=== PATIENT | female | born 1985 | race Caucasian/White ===

== ENCOUNTER → 2020-08-22 | Outpatient (CLI) | payer BC ==
--- NOTE | 2020-08-22 16:57 | Diagnostic Imaging Report ---
INDICATION: patient, survey. TECHNIQUE: Multiple real-time grayscale images were obtained over the gravid uterus. COMPARISON: None during this . FINDINGS: A single live intrauterine fetus is seen measuring 20 weeks 4 days in size by composite measurements. Sonographic EDC is 01/05/2021. The fetus is in cephalic presentation. Placenta is posterior with no evidence of previa. heart rate is 140 bpm. Cervical length was 4.9 cm. Amniotic fluid is qualitatively normal, there was no adnexal free fluid, maternal ovaries are not visualized. survey showed normal-appearing kidneys and bladder. Normal-appearing stomach is seen. Normal-appearing intracranial structures were seen. Four-chamber heart view appear normal. Three-vessel cord and cord insertion appear normal. Views of the spine were unremarkable. Biometrical measurements are as follows: Biparietal 4.78 cm, age 20 weeks 4 days. Head circumference 17.62 cm, age 20 weeks 1 days. Abdominal circumference 15.17 cm, age 20 weeks 3 days. Femur length 3.39 cm, age 20 weeks 5 days. Sonographic estimate age: 20 weeks 4 days. Sonographic estimated date of delivery: 01/05/21. Estimated Weight: 356 gm (+/- 52 gm). LMP percentile: 91%. heart rate: 140 beats per minute. number: 1 of 1. IMPRESSION: Single live intrauterine fetus measuring 20 weeks 4 days in size with no detectable abnormalities. Dictated by: Dictated on workstation # [id number]
== END ==
LOC: RAD 15:00
PROVIDERS: ATTEND Nurse Practitioner Women's Health
DX: Z34.02 Encounter for supervision of normal first pregnancy, second trimester (principal); Z3A.20 20 weeks gestation of pregnancy
CPT/HCPCS: 76805

== ENCOUNTER 2021-01-04 19:00 | Inpatient (IN) | payer BC ==
[~2021-01-04] VITALS: Ht 165.1 cm; Wt 91.3 kg
[2021-01-05] VITALS (50 sets, daily range): BP systolic 58–143; BP diastolic 33–75
[2021-01-05] MEDS: D5 LR IV SOLUTION 1,000 ML IV SCH ×2 (07:28→11:47)
[2021-01-05] MEDS ORDERED: CATHETER FLUSH 10 ML SYR IV PRN (07:30)
[2021-01-05 07:46] LABS: BASOPHILS % (AUTO) 0 % (0-10); EOSINOPHILS # (AUTO) 0.3 10^3/uL (0.0-0.3); EOSINOPHILS % (AUTO) 3 % (0-10); HEMATOCRIT 32 % (35-52); HEMOGLOBIN 10.3 g/dL (11.5-16.0); LYMPHOCYTES # (AUTO) 1.4 10^3/uL (1.0-4.0); LYMPHOCYTES % (AUTO) 16 % (12-44); MEAN CORPUSCULAR HEMOGLOBIN 26 pg (25-34); MEAN CORPUSCULAR HGB CONC 32 g/dL (32-36); MEAN CORPUSCULAR VOLUME 82 fL (80-99); MEAN PLATELET VOLUME 10.9 fL (9.0-12.2); MONOCYTES # (AUTO) 0.5 10^3/uL (0.0-1.0); MONOCYTES % (AUTO) 6 % (0-12); NEUTROPHILS # (AUTO) 6.2 10^3/uL (1.8-7.8); NEUTROPHILS % (AUTO) 71 % (42-75); PLATELET COUNT 163 10^3/uL (130-400); WHITE BLOOD COUNT 8.7 10^3/uL (4.3-11.0)
[2021-01-05] MEDS ORDERED: PNV11TAB5 PO (07:48)
[2021-01-05 07:58] LABS: BILIRUBIN,URINE NEGATIVE (NEGATIVE); CLARITY,URINE CLEAR; COLOR,URINE YELLOW; GLUCOSE, URINE (UA) NEGATIVE (NEGATIVE); KETONES,URINE NEGATIVE (NEGATIVE); LEUKOCYTE ESTERASE ,URINE 1+ (NEGATIVE); NITRITE,URINE NEGATIVE (NEGATIVE); PH,URINE 6.5 (5-9); PROTEIN,URINE NEGATIVE (NEGATIVE)
[2021-01-05 08:06] LABS: BACTERIA,URINE FEW /HPF; RBC,URINE RARE /HPF
[2021-01-05 08:07] LABS: AMORPHOUS SEDIMENT,UR FEW AMOR URATES /LPF
[2021-01-05] MEDS ORDERED: fentaNYL 2 mcg/ml BUPIVA 0.125 100 ML ONE (08:19)
--- NOTE | 2021-01-05 08:36 | History & Physical-OB ---
OB - Chief Complaint & HPI Date/Time Date of Admission: Date of Admission: Jan 05, 2021 at 6:41 am Date seen by a Provider: Jan 05, 2021 Time Seen by a Provider: 07:55 Chief Complaint/History OB-Reason for Admission/Chief: Induction of Labor Hx : 3 Hx Para: 2 Gestational Age in Weeks: 39 Gestational Age in Days: 0 Admission Nurse Assessment Rev: Yes History of Labs A pos Antibody neg RI RPR NR HBsAg NR HIV NR GC neg GBS neg Allergies and Home Medications Allergies Coded Allergies: Penicillins (Verified Allergy, Mild, Rash, 01/05/21) Home Medications [id number]/FA/Omega3/Dha/Fish Oil 1 Each Tab.chew, 1 EACH PO DAILY, (Reported) Last Action: New Order Patient Home Medication List Home Medication List Reviewed: Yes OB - History Hx of Present Care: Yes Ultrasounds: Normal mid trimester US Obstetrical Complications: None Medical Complications: None Patient Past Medical History n/a OB - Admission Exam Physical Exam HEENT: NCAT Heart: Rhythm Normal Lungs: Clear Abdomen: Gravid Extremities: Normal Reflexes: Normal Cervical Dilatation: 6cm Effacement: 75% Station: -1 Membranes: Intact Heart Rate: 130's Accelerations: Accelerations Present Decelerations: No Decelerations Short Term Variability: Present Test Analyst Variability: Average (6-25) Contractions on Admission: 6-10 Minutes Apart Intensity: Mild Jennings Scoring Tool (Modified) Dilation (cm): >5cm (3) Effacement (%): 80-100% (3) Descent/Station: -1,0 (2) Cervix Consistency: Soft (2) Cervix Position: Anterior (2) Jennings Score: 14 Labs Laboratory Tests Test 01/05/21 07:00 01/05/21 07:20 Range/Units Urine Color YELLOW Urine Clarity CLEAR Urine pH 6.5 5-9 Urine Specific [place] 1.020 1.016-1.022 Urine Protein NEGATIVE NEGATIVE Urine Glucose (UA) NEGATIVE NEGATIVE Urine Ketones NEGATIVE NEGATIVE Urine Nitrite NEGATIVE NEGATIVE Urine Bilirubin NEGATIVE NEGATIVE Urine Urobilinogen 0.2 < = 1.0 MG/DL Urine Leukocyte Esterase 1+ H NEGATIVE Urine RBC (Auto) TRACE-I NEGATIVE Urine RBC RARE /HPF Urine WBC 5-10 H /HPF Urine Squamous Epithelial Cells 5-10 /HPF Urine Crystals PRESENT H /LPF Urine Amorphous Sediment FEW DARIUS URATES H /LPF Urine Bacteria FEW H /HPF Urine Casts NONE /LPF Urine Mucus NEGATIVE /LPF Urine Culture Indicated YES White Blood Count 8.7 4.3-11.0 10^3/uL Red Blood Count 3.93 3.80-5.11 10^6/uL Hemoglobin 10.3 L 11.5-16.0 g/dL Hematocrit 32 L 35-52 % Mean Corpuscular Volume 82 80-99 fL Mean Corpuscular Hemoglobin 26 25-34 pg Mean Corpuscular Hemoglobin Concent 32 32-36 g/dL Red Cell Distribution Width 14.3 10.0-14.5 % Platelet Count 163 130-400 10^3/uL Mean Platelet Volume 10.9 9.0-12.2 fL Immature Granulocyte % (Auto) 3 % Neutrophils (%) (Auto) 71 42-75 % Lymphocytes (%) (Auto) 16 12-44 % Monocytes (%) (Auto) 6 0-12 % Eosinophils (%) (Auto) 3 0-10 % Basophils (%) (Auto) 0 0-10 % Neutrophils # (Auto) 6.2 1.8-7.8 10^3/uL Lymphocytes # (Auto) 1.4 1.0-4.0 10^3/uL Monocytes # (Auto) 0.5 0.0-1.0 10^3/uL Eosinophils # (Auto) 0.3 0.0-0.3 10^3/uL Basophils # (Auto) 0.0 0.0-0.1 10^3/uL Immature Granulocyte # (Auto) 0.3 H 0.0-0.1 10^3/uL OB - Assessment/Plan/Diagnosis Assessment Assessment: induction of labor Admission Dx 35 yo @ 39 weeks Elective IOL GBS neg Admission Status: Inpatient Order (span 2 midnights) Reason for Inpatient Admission: Induction of labor at 39 weeks Plan Plan: Induction MONICA CATHERINE DO Jan 05, 2021 8:36 am
[2021-01-05] MEDS ORDERED: METOCLOPRAMIDE INJ 10 MG/2 ML (REGLAN) IV PRN (09:15)
[2021-01-05] MEDS ORDERED: EPIDURAL (fentaNYL 2 MCG/ML BUPIVA 0.125%)100 ML BAG EPI SCH (09:15)
[2021-01-05] MEDS ORDERED: ONDANSETRON 4 MG/2 ML (SDV) Z0FRAN IV PRN (09:15)
[2021-01-05] MEDS ORDERED: NALOXONE 0.4 MG/ML 1 ML (NARCAN) VIAL IV PRN ×2 (09:15)
[2021-01-05] MEDS ORDERED: LACTATED RINGERS 1,000 ML IV SCH (09:15)
[2021-01-05] MEDS ORDERED: diphenhydrAMINE 50 MG/ML INJ (BENADRYL) IV PRN (09:15)
[2021-01-05] MEDS ORDERED: fentaNYL 2 mcg/ml BUPIVA 0.125 100 ML EPI PRN (09:30)
[2021-01-05] MEDS ORDERED: OXYTOCIN PRE-MIX DRIP 500 ML IV SCH ×2 (10:30→15:00)
[2021-01-05] MEDS ORDERED: LIDOCAINE 1% INJ 20 ML 20 ML VIAL ONE (14:29)
[2021-01-05] MEDS ORDERED: BENZOCAINE/MENTHOL (DERMOPLAST) 56 ML CAN TP PRN (15:00)
[2021-01-05] MEDS ORDERED: MEASLES,MUMPS,RUBELLA 1 EA INJ SQ ONE (15:00)
[2021-01-05] MEDS ORDERED: HYDROcodone/APAP 5 MG/325 MG (LORTAB) TAB PO PRN (15:00)
[2021-01-05] MEDS ORDERED: DIBUCAINE 1% OINTMENT 30 GM TUBE TOP PRN (15:00)
[2021-01-05] MEDS ORDERED: WITCH HAZEL(TUCKS) 40 EA JAR TOP PRN (15:00)
[2021-01-05] MEDS ORDERED: TETANUS,DIPTH,PERTUSS P/F (BOOSTRIX) 0.5 ML VIAL IM ONE (15:00)
--- NOTE | 2021-01-05 16:56 | OB Labor & Delivery Record ---
L&D History Date of Service Date of Service: Jan 05, 2021 History Gestational Age in Weeks: 39 Hx : 3 Hx Para: 2 Complications Events: Routine care Operative Indications (Cesarea: N/A-Vaginal Delivery Intrapartal Events: None L&D Stage1 Stage One Onset of Labor - Date: Jan 05, 2021 Monitors and Tracing Monitor Mode: External Heart Rate: 140 Monitor Accelerations: Uniform Station: +1 Snuff Maker Variability: Average (6-10) Short Term Variability: Present Vital Signs VS - Last 72 Hours, by Label 01/05/21 01/05/21 01/05/21 01/05/21 07:17 08:52 08:57 09:00 Pulse 109 96 94 87 Resp 18 18 18 18 B/P (MAP) 109/65 (80) 112/68 (83) 113/71 (85) 111/67 (82) Pulse Ox 100 100 O2 Delivery Room Air Room Air Room Air Room Air 01/05/21 01/05/21 01/05/21 01/05/21 09:03 09:06 09:09 09:13 Pulse 105 116 116 80 Resp 18 18 18 18 B/P (MAP) 118/75 (89) 111/58 (75) 94/56 (69) 80/41 (54) Pulse Ox 95 100 100 O2 Delivery Room Air Room Air Room Air Room Air 01/05/21 01/05/21 01/05/21 01/05/21 09:15 09:16 09:18 09:22 Pulse 75 67 85 94 Resp 18 18 18 18 B/P (MAP) 63/36 (45) 58/33 (41) 96/52 (67) 120/56 (77) Pulse Ox 96 99 O2 Delivery Room Air Room Air Room Air Room Air 01/05/21 01/05/21 01/05/21 01/05/21 09:25 09:28 09:29 09:30 Temp 35.6 Pulse 87 84 85 75 Resp 18 18 18 18 B/P (MAP) 87/52 (64) 75/45 (55) 79/46 (57) 87/51 (63) Pulse Ox 99 O2 Delivery Room Air Room Air Room Air Room Air 01/05/21 01/05/21 01/05/21 01/05/21 09:33 09:36 09:39 09:45 Pulse 68 102 93 100 Resp 18 18 18 18 B/P (MAP) 115/56 (75) 96/53 (67) 94/52 (66) 98/57 (71) Pulse Ox 99 O2 Delivery Room Air Room Air Room Air Room Air 01/05/21 01/05/21 01/05/21 01/05/21 09:48 09:51 09:54 09:57 Pulse 100 95 84 86 Resp 18 18 18 18 B/P (MAP) 93/50 (64) 94/55 (68) 99/57 (71) 115/55 (75) Pulse Ox 100 98 100 O2 Delivery Room Air Room Air Room Air Room Air 01/05/21 01/05/21 01/05/21 01/05/21 10:13 10:29 10:43 10:58 Pulse 67 92 96 97 Resp 18 18 18 18 B/P (MAP) 104/60 (75) 102/61 (75) 92/52 (65) 87/53 (64) Pulse Ox 100 100 100 100 O2 Delivery Room Air Room Air Room Air Room Air 01/05/21 01/05/21 01/05/21 01/05/21 11:02 11:13 11:29 11:45 Temp 36.1 Pulse 84 88 75 Resp 18 18 18 B/P (MAP) 92/51 (65) 90/50 (63) 116/67 (83) Pulse Ox 100 100 100 O2 Delivery Room Air Room Air Room Air 01/05/21 01/05/21 01/05/21 01/05/21 11:58 12:14 12:28 12:44 Pulse 86 74 76 72 Resp 18 18 18 18 B/P (MAP) 109/59 (76) 105/57 (73) 109/62 (78) 110/62 (78) Pulse Ox 99 100 99 100 O2 Delivery Room Air Room Air Room Air Room Air 01/05/21 01/05/21 01/05/21 01/05/21 13:00 13:14 13:29 13:43 Pulse 94 85 83 90 Resp 18 18 18 18 B/P (MAP) 108/65 (79) 112/64 (80) 103/59 (74) 113/65 (81) Pulse Ox 100 100 100 100 O2 Delivery Room Air Room Air Room Air Room Air 01/05/21 01/05/21 01/05/2122/21 14:00 14:14 14:30 14:42 Pulse 78 75 96 Resp 18 18 18 18 B/P (MAP) 110/55 (73) 101/58 (72) 143/75 (97) 119/63 (81) Pulse Ox 100 100 91 O2 Delivery Room Air Room Air Room Air Room Air 01/05/21 01/05/21 01/05/21 01/05/21 14:58 15:13 15:28 15:43 Temp 36.2 36.2 36.2 Pulse 80 82 85 70 Resp 18 18 18 18 B/P (MAP) 110/59 (76) 104/54 (71) 101/61 (74) 108/59 (75) O2 Delivery Room Air Room Air Room Air Room Air 01/05/21 15:58 Temp 36.4 Resp 18 B/P (MAP) 101/49 (66) O2 Delivery Room Air Rupture of Membranes Spontaneous Ruture of Membrane: No Amniotic Membrane Rupture Time: 0810 Amniotic Membrane Fluid Desc.: Clear Vaginal Bleeding Description: Normal Show Induction/Anesthesia Epidural Cath Placement - Time: 0858 Progress/Notes Patient admitted for elective IOL, AROM performed, epidural received. She was augmented with pitocin max dose of 4 mu, and progressed to complete and +2 station. L&D Stage2 Stage Two Stage II Date: Jan 05, 2021 Monitors and Tracing Monitor Mode: External Heart Rate: 140 Monitor Accelerations: Uniform Snuff Maker Variability: Average (6-10) Short Term Variability: Present Position: Right Occiput Anterior Presentation: Vertex Cord Descript/Complications Cord Vessel Description: 3 Vessels Delivery Type Delivery Method: Spontaneous Vaginal Anterior Shoulder: Left Episiotomy/Perineal Laceration Laceraction(s)/Extensions: Yes Degree (describe repair) 1st degree perineal laceration repaired using 3-0 vicryl suture in usual fashion. Condition of Infant Delivery 1 minute Comment: 7 5 minute Comment: 9 Notes Live male infant weight 9lbs 10 oz Condition of Infant Condition of : Living Exam: No Observed Abnormalities Resuscitation Resuscitation: N/A - Spontaneous Resp L&D Stage3 Stage Three Stage III Date: Jan 05, 2021 Pictocin Pitocin Administration mu/min: 4 Pitocin ml/hr: 4 Pitocin Administration Comment: 30 mu wide open after delivery of placenta Placenta Delivery Placenta Delivery: Spontaneous Delivery Summary Summary Estimated blood loss (mL): 200 Attending at delivery: Monica Catherine DO Condition of Delivery Examined: Cervix Examined, Uterus Explored Post Hemorrhage: No Condition of Mother stable Condition of (s) stable MONICA CATHERINE DO Jan 05, 2021 4:56 pm
[2021-01-05] MEDS: IBUPROFEN 600 MG (MOTRIN) TAB PO SCH (17:01)
[2021-01-05] MEDS ORDERED: CATHETER FLUSH 10 ML SYR IV SCH (22:00)
[2021-01-06] MEDS: IBUPROFEN 600 MG (MOTRIN) TAB PO SCH ×3 (00:08→12:07)
[2021-01-06] MEDS: DOCUSATE SODIUM 100 MG (COLACE) CAP PO SCH ×2 (00:08→09:29)
[2021-01-06 00:10] VITALS: BP 101/57
[2021-01-06 05:47] VITALS: BP 102/60
[2021-01-06 06:00] LABS: BASOPHILS % (AUTO) 0 % (0-10); EOSINOPHILS # (AUTO) 0.2 10^3/uL (0.0-0.3); EOSINOPHILS % (AUTO) 2 % (0-10); HEMATOCRIT 30 % (35-52); HEMOGLOBIN 9.3 g/dL (11.5-16.0); LYMPHOCYTES % (AUTO) 17 % (12-44); MEAN CORPUSCULAR HEMOGLOBIN 26 pg (25-34); MEAN CORPUSCULAR HGB CONC 31 g/dL (32-36); MEAN CORPUSCULAR VOLUME 84 fL (80-99); MEAN PLATELET VOLUME 10.8 fL (9.0-12.2); MONOCYTES # (AUTO) 0.8 10^3/uL (0.0-1.0); MONOCYTES % (AUTO) 7 % (0-12); NEUTROPHILS # (AUTO) 8.9 10^3/uL (1.8-7.8); NEUTROPHILS % (AUTO) 73 % (42-75); PLATELET COUNT 134 10^3/uL (130-400); WHITE BLOOD COUNT 12.2 10^3/uL (4.3-11.0)
[2021-01-06] MEDS ORDERED: PRENATAL VITAMIN 1 EA TAB PO SCH (07:00)
--- NOTE | 2021-01-06 07:40 | Postpartum Progress Note ---
Note Note Day # 1 Subjective: Patient is without complaints. Ambulating, voiding. Tolerating a regular diet without nausea or vomiting. Normal lochia. Pain is well controlled with oral pain medications. Objective: Physical Exam: General - Alert and oriented, no apparent distress Abdomen - Soft, appropriately tender to palpation, non-distended, fundus firm at umbilicus Extremities - no edema, negative Chris's bilaterally Assessment: PPD 1 NVD Acute blood loss anemia Plan: Routine care. Encourage breast feeding. Encourage ambulation. Ferrous sulfate supplementation. Plan for discharge today Vitals - Labs Vital Signs - I&O Vital Signs Date Time Temp Pulse Resp B/P (MAP) Pulse Ox O2 Delivery O2 Flow Rate FiO2 01/06/21 05:47 36.2 65 18 102/60 (74) 98 01/06/21 00:10 36.6 73 18 101/57 (72) 98 01/05/21 19:35 36.5 76 18 115/55 (75) 99 01/05/21 16:46 36.5 78 18 125/58 (80) Room Air 01/05/21 15:58 36.4 18 101/49 (66) Room Air 01/05/21 15:43 36.2 70 18 108/59 (75) Room Air 01/05/21 15:28 36.2 85 18 101/61 (74) Room Air 01/05/21 15:13 36.2 82 18 104/54 (71) Room Air 01/05/21 14:58 80 18 110/59 (76) Room Air 01/05/21 14:42 18 119/63 (81) Room Air 01/05/21 14:30 96 18 143/75 (97) 91 Room Air 01/05/21 14:14 75 18 101/58 (72) 100 Room Air 01/05/21 14:00 78 18 110/55 (73) 100 Room Air 01/05/21 13:43 90 18 113/65 (81) 100 Room Air 01/05/21 13:29 83 18 103/59 (74) 100 Room Air 01/05/21 13:14 85 18 112/64 (80) 100 Room Air 01/05/21 13:00 94 18 108/65 (79) 100 Room Air 01/05/21 12:44 72 18 110/62 (78) 100 Room Air 01/05/21 12:28 76 18 109/62 (78) 99 Room Air 01/05/21 12:14 74 18 105/57 (73) 100 Room Air 01/05/21 11:58 86 18 109/59 (76) 99 Room Air 01/05/21 11:45 75 18 116/67 (83) 100 Room Air 01/05/21 11:29 88 18 90/50 (63) 100 Room Air 01/05/21 11:13 84 18 92/51 (65) 100 Room Air 01/05/21 11:02 36.1 01/05/21 10:58 97 18 87/53 (64) 100 Room Air 01/05/21 10:43 96 18 92/52 (65) 100 Room Air 01/05/21 10:29 92 18 102/61 (75) 100 Room Air 01/05/21 10:13 67 18 104/60 (75) 100 Room Air 01/05/21 09:57 86 18 115/55 (75) 100 Room Air 01/05/21 09:54 84 18 99/57 (71) 98 Room Air 01/05/21 09:51 95 18 94/55 (68) Room Air 01/05/21 09:48 100 18 93/50 (64) 100 Room Air 01/05/21 09:45 100 18 98/57 (71) Room Air 01/05/21 09:39 93 18 94/52 (66) Room Air 01/05/21 09:36 102 18 96/53 (67) 99 Room Air 01/05/21 09:33 68 18 115/56 (75) Room Air 01/05/21 09:30 75 18 87/51 (63) Room Air 01/05/21 09:29 85 18 79/46 (57) Room Air 01/05/21 09:28 35.6 84 18 75/45 (55) 99 Room Air 01/05/21 09:25 87 18 87/52 (64) Room Air 01/05/21 09:22 94 18 120/56 (77) 99 Room Air 01/05/21 09:18 85 18 96/52 (67) 96 Room Air 01/05/21 09:16 67 18 58/33 (41) Room Air 01/05/21 09:15 75 18 63/36 (45) Room Air 01/05/21 09:13 80 18 80/41 (54) 100 Room Air 01/05/21 09:09 116 18 94/56 (69) 100 Room Air 01/05/21 09:06 116 18 111/58 (75) Room Air 01/05/21 09:03 105 18 118/75 (89) 95 Room Air 01/05/21 09:00 87 18 111/67 (82) Room Air 01/05/21 08:57 94 18 113/71 (85) 100 Room Air 01/05/21 08:52 96 18 112/68 (83) 100 Room Air I & O 01/06/21 07:00 Intake Total 1000 ml Balance 1000 ml Labs Laboratory Tests 01/06/21 05:25: White Blood Count 12.2H, Red Blood Count 3.60L, Hemoglobin 9.3L, Hematocrit 30L, Mean Corpuscular Volume 84, Mean Corpuscular Hemoglobin 26, Mean Corpuscular Hemoglobin Concent 31L, Red Cell Distribution Width 14.5, Platelet Count 134, Mean Platelet Volume 10.8, Immature Granulocyte % (Auto) 2, Neutrophils (%) (Auto) 73, Lymphocytes (%) (Auto) 17, Monocytes (%) (Auto) 7, Eosinophils (%) (Auto) 2, Basophils (%) (Auto) 0, Neutrophils # (Auto) 8.9H, Lymphocytes # (Auto) 2.0, Monocytes # (Auto) 0.8, Eosinophils # (Auto) 0.2, Basophils # (Auto) 0.0, Immature Granulocyte # (Auto) 0.2H MONICA CATHERINE DO Jan 06, 2021 07:40
--- NOTE | 2021-01-06 07:42 | Discharge Inst-Women's Service ---
Discharge Inst-Women's Serv Depart Medication/Instructions New, Converted or Re-Newed RX: RX on Chart Final Diagnosis PPD 1 NVD Problems Reviewed?: Yes Consults/Follow Up Additional Follow Up: Yes Orders/Referrals Dr. Catherine in 6 weeks Activity Activity: Activity as Tolerated Driving Instructions: No Driving for 1 Week NO SMOKING: NO SMOKING Nothing Inside Vagina: No Douching, No [place], No Tampons Diet Discharge Diet: No Restrictions Symptoms to Report to : Bleeding Excessive, Pain Increased, Fever Over 101 Degrees F, Vaginal Bleeding Increase, Questions/Concerns For Any Problems or Questions: Contact Your Physician MONICA CATHERINE DO Jan 06, 2021 07:42
[2021-01-06] MEDS ORDERED: DCS100C PO (07:44)
[2021-01-06] MEDS ORDERED: BENZ78AE5 TP (07:44)
[2021-01-06] MEDS ORDERED: IBUP-844 PO (07:44)
[2021-01-06] MEDS ORDERED: FERR325T24 PO (07:44)
[2021-01-06] MEDS ORDERED: ACHD5005 PO (07:44)
[2021-01-06] MEDS ORDERED: DIBU30OI TOP (07:44)
[2021-01-06] MEDS ORDERED: FERROUS SULF 325 MG (IRON) TAB PO SCH (09:00)
[2021-01-06 09:32] VITALS: BP 107/62
== END 2021-01-06 12:10 | disposition home or self-care (01) | DRG 806 ==
LOC: LDRP 01-05 06:41
PROVIDERS: ADMIT Obstetrics & Gynecology; ATTEND Obstetrics & Gynecology
PROC: 10E0XZZ Delivery of Products of Conception, External Approach (ICD-10-PCS; principal; 2021-01-05)
PROC: 10907ZC Drainage of Amniotic Fluid, Therapeutic from Products of Conception, Via Natural or Artificial Opening (ICD-10-PCS; 2021-01-05)
PROC: 0HQ9XZZ Repair Perineum Skin, External Approach (ICD-10-PCS; 2021-01-05)
DX: O70.0 First degree perineal laceration during delivery (principal); D62 Acute posthemorrhagic anemia; Z37.0 Single live birth; Z3A.39 39 weeks gestation of pregnancy; O90.81 Anemia of the puerperium
CPT/HCPCS: 36415; 81000; 85025; 86850; 86900; 86901; 87088